=== PATIENT | male | born 1960 | race Caucasian/White ===

== ENCOUNTER 2018-12-27 10:12 | Emergency (ER) | payer MEDICARE ==
[~2018-12-27] VITALS: Ht 170.2 cm; Wt 106.0 kg
[2018-12-27] MEDS ORDERED: OLANZAPINE 5MG TABLET ODT PO ONE (11:15)
[2018-12-27] MEDS ORDERED: LORAZEPAM 1MG TABLET PO ONE (11:15)
[2018-12-27 12:22] LABS: *AMPHETAMINES SCREEN URINE NEGATIVE (NEGATIVE); *BARBITURATES SCREEN URINE NEGATIVE (NEGATIVE); *BENZODIAZEPINES SCREEN URINE NEGATIVE (NEGATIVE); *COCAINE SCREEN URINE NEGATIVE (NEGATIVE); METHADONE URINE SCREEN NEGATIVE (NEGATIVE); OPIATES URINE SCREEN NEGATIVE (NEGATIVE); PHENCYCLIDINE URINE SCREEN NEGATIVE (NEGATIVE)
[2018-12-27 12:23] LABS: BASOPHILS % 0.9 % (0.0-2.0); EOSINOPHILS % 1.7 % (0.0-5.0); HEMATOCRIT. 46.1 % (42.0-52.0); HEMOGLOBIN. 16.4 g/dL (14.0-18.0); MEAN CORPUSCULAR VOLUME 92.6 fL (80.0-94.0); MEAN PLATELET VOLUME 8.6 fl (7.4-10.4); MONOCYTES % 6.1 % (2.0-8.0); NEUTROPHILS % 63.3 % (40.0-76.0); PLATELET 136 x1000/uL (130-400); RED BLOOD CELL COUNT 4.98 mill/uL (4.7-6.1); RED CELL DISTRIBUTION WIDTH 13.9 % (11.6-14.6)
[2018-12-27 12:24] LABS: CANNABINOID URINE SCREEN NEGATIVE (NEGATIVE)
[2018-12-27 12:28] LABS: CHLORIDE 110 mEq/L (98-107)
[2018-12-27 12:35] LABS: ETHANOL BLOOD < 10 mg/dL
[2018-12-27 14:30] VITALS: BP 135/74
== END 2018-12-27 14:45 | disposition home or self-care (01) ==
LOC: ER 10:25
DX: F41.9 Anxiety disorder, unspecified (principal); F43.10 Post-traumatic stress disorder, unspecified; I10 Essential (primary) hypertension; E11.9 Type 2 diabetes mellitus without complications; E78.00 Pure hypercholesterolemia, unspecified; F31.9 Bipolar disorder, unspecified; F17.210 Nicotine dependence, cigarettes, uncomplicated; Z71.6 Tobacco abuse counseling; Z88.8 Allergy status to other drugs, medicaments and biological substances
CPT/HCPCS: 36415; 80305; 80307; 80320; 80329; 99284; 99406; G0480